=== PATIENT | male | born 1995 | race Caucasian/White ===

== ENCOUNTER 2017-10-06 11:56 | Emergency (ER) | payer BC ==
[~2017-10-06] VITALS: Ht 190.5 cm; Wt 72.6 kg
[2017-10-06 11:56] VITALS: BP 124/89
[2017-10-06] MEDS ORDERED: predniSONE 20 MG TABLET ONE (12:25)
[2017-10-06] MEDS ORDERED: hydrOXYzine 10 MG TABLET ONE (12:26)
[2017-10-06] MEDS ORDERED: hydrOXYzine PAMOATE 25 MG CAPSULE PO ONE (12:30)
[2017-10-06] MEDS ORDERED: predniSONE 20 MG TABLET PO ONE (12:30)
== END 2017-10-06 12:51 | disposition home or self-care (01) ==
LOC: ER 11:57
DX: L50.0 Allergic urticaria (principal)
CPT/HCPCS: 99283; A4606; J7512; Q0177; Z7610